=== PATIENT | female | born 1955 | race Caucasian/White ===

== ENCOUNTER 2017-03-21 07:01 | Outpatient (CLI) | payer OTHER ==
[2017-03-21 08:15] LABS: eGFR (African) > 60; eGFR (Non-African) > 60
== END 2017-03-21 07:02 ==
LOC: LAB 07:01
PROVIDERS: ATTEND Family Medicine
DX: Z00.00 Encounter for general adult medical examination without abnormal findings (principal); E55.9 Vitamin D deficiency, unspecified
CPT/HCPCS: 36415; 80053; 80061; 82306

== ENCOUNTER 2017-05-28 08:40 | Outpatient (CLI) | payer OTHER ==
[2017-05-28 08:55] LABS: BASOPHILS % 0.9 (0.0-1.5); EOSINOPHILS % 3.6 % (0.0-6.8); MEAN CORPUSCULAR HEMOGLOBIN 30.8 pg (28.0-34.0); MEAN CORPUSCULAR VOLUME 88.5 fl (80.0-100.0); MONOCYTES % 3.3 % (0.0-11.0); NEUTROPHILS # 3.7 # k/uL (1.4-7.7)
== END 2017-05-28 08:42 ==
LOC: LAB 08:40
PROVIDERS: ATTEND Family Medicine
DX: E55.9 Vitamin D deficiency, unspecified (principal); I10 Essential (primary) hypertension
CPT/HCPCS: 36415; 82306; 85025

== ENCOUNTER 2017-09-26 07:06 | Outpatient (CLI) | payer OTHER | END 2017-09-26 07:07 | LOC: LAB 07:06 | PROVIDERS: ATTEND Family Medicine | DX: E55.9 Vitamin D deficiency, unspecified (principal) | CPT/HCPCS: 36415; 82306 ==

== ENCOUNTER 2018-03-18 07:58 | Outpatient (CLI) | payer OTHER ==
[2018-03-18 09:09] LABS: eGFR (African) > 60; eGFR (Non-African) > 60
== END 2018-03-18 08:00 ==
LOC: LAB 07:58
PROVIDERS: ATTEND Family Medicine
DX: Z00.00 Encounter for general adult medical examination without abnormal findings (principal)
CPT/HCPCS: 36415; 80053; 80061; 82306

== ENCOUNTER 2019-03-28 09:30 | Outpatient (CLI) | payer OTHER ==
[2019-03-28 09:51] LABS: MEAN CORPUSCULAR HEMOGLOBIN 30.3 pg (28.0-34.0)
[2019-03-28 10:34] LABS: eGFR (Non-African) > 60
== END 2019-03-28 09:33 ==
LOC: LAB 09:30
PROVIDERS: ATTEND Family Medicine
DX: Z13.220 Encounter for screening for lipoid disorders (principal); Z13.29 Encounter for screening for other suspected endocrine disorder; Z13.0 Encounter for screening for diseases of the blood and blood-forming organs and certain disorders involving the immune mechanism
CPT/HCPCS: 36415; 80053; 80061; 84443; 85027